=== PATIENT | male | born 1950 | race Caucasian/White ===

== ENCOUNTER 2016-11-05 00:08 | Emergency (ER) | payer OTHER ==
[~2016-11-05] VITALS: Ht 185.4 cm; Wt 98.0 kg
[~2016-11-05 00:08] MED LIST: ARTISOL12; ASPI1TAB83 PO; BRIM0.2S18 OPR; LOSA100T2 PO; NVLGI/PEN SQ; PRED1SUS3 OPB
[2016-11-05 00:12] VITALS: TEMP 36.8; Ht 185.4 cm; Wt 98.0 kg
[2016-11-05] MEDS ORDERED: OXYMETAZOLINE HCL 0.05% NA SPR 15 ML BTL ONE (00:12)
--- NOTE | 2016-11-05 00:29 | EMERGENCY ROOM VISIT NOTE ---
History Report prepared by Mariz[place]liberty: Colby Sheldon Under the Supervision of: Dr. Sarai Woods D.O. First contact with patient: 00:15 Chief Complaint: NOSE BLEED (MINOR) Stated Complaint: NOSE BLEED History of Present Illness The patient is a 66 year old male who presents to the Emergency Room with complaints of persistent nose bleed that started prior to arrival. The patient woke up from sleep and blew his nose. He noticed that it didn't feel right and went to check in the mirror when he noticed a significant amount of blood coming from his left nostril. The patient has not had a nose bleed like this in the past and does not have a history of nose bleeds. He is on 81 mg of Aspirin a day. The patient notes that the blood is starting to go down his throat. Source of History: patient Onset: prior to arrival Position: nose Timing: other (persistent) Note: Other associated symptoms: blood running down throat Denies: history of nose bleeds Review of Systems See HPI for pertinent positives & negatives. A total of 10 systems reviewed and were otherwise negative. Past Medical & Surgical Medical Problems: (1) AAA (abdominal aortic aneurysm) (2) CAD (coronary artery disease) (3) DM2 (diabetes mellitus, type 2) (4) Hemoptysis (5) HLD (hyperlipidemia) (6) HTN (hypertension) Surgical Problems: (1) H/O eye surgery (2) History of percutaneous left heart catheterization (LHC) Family History Diabetes mellitus FH: CAD (coronary artery disease) FH: alcohol abuse FH: cancer Stroke Social History Smoking Status: Current Every Day Smoker Marital Status: Housing Status: lives with family Occupation Status: retired Current/Historical Medications Scheduled Aspirin (Aspirin), 1 TAB PO DAILY Insulin Aspart (Novolog Flexpen), UNITS SQ TIDM Losartan Potassium & Hydrochlo (Hyzaar), 50 MG PO DAILY Allergies Coded Allergies: No Known Allergies (Unverified , 11/05/16) Physical Exam Vital Signs Date Time Temp Pulse Resp B/P Pulse Ox O2 Delivery O2 Flow Rate FiO2 11/05/16 01:34 95 20 144/84 96 11/05/16 01:00 92 20 164/79 95 Room Air 11/05/16 00:45 86 20 153/84 96 Room Air 11/05/16 00:30 81 20 189/104 94 Room Air 11/05/16 00:20 90 22 176/92 95 Room Air 11/05/16 00:12 36.8 91 22 192/95 96 Room Air Physical Exam HEENT: Head - normocephalic and atraumatic Pupils are equal, round, and reactive to light. Extraocular eye muscles are intact, and sclera are anicteric. Nose - Bleeding is from left nares over kisselbach plexus. Mouth - moist buccal mucosa. Oropharynx is nonerythematous and there is no tonsillar exudate or edema noted. Neck: Supple; no JVD, nuchal rigidity, cervical lymphadenopathy. Heart: Regular rate and rhythm. There is a normal S1 and S2 with no murmurs, clicks, or gallops appreciated. Lungs: Clear to auscultation bilaterally with no wheezes, rales, or rhonchi. Abdomen: Soft, completely nontender, nondistended, with good bowel sounds. There are no palpable pulsatile masses or hepatosplenomegaly. There is no guarding, rigidity, or rebound noted. Extremities: No evidence of cyanosis, clubbing, or edema. There are easily palpable peripheral pulses. Skin: warm and dry with good turgor and no rashes. Medical Decision & Procedures Medications Administered Medications (Trade) Dose Ordered Sig/Lux Route Start Time Stop Time Status Last Admin Dose Admin Oxymetazoline HCl (Afrin 0.05% Nasal [place]) 75 sprays STK-MED ONCE .ROUTE 11/05/16 00:12 11/05/16 00:13 DC 11/05/16 00:19 75 SPRAYS Procedure Afrin-intranasal ED Course 0012: Ordered Oxymetazoline HCl 75 sprays intranasal 0021: Past medical records reviewed. The patient was evaluated in room C3. A complete history and physical exam was performed. 0032: At this time on exam, the patient has moderate blood from both nares. He was able to blow out large blood clots and expectorate blood as well. We used the Afrin nasal spray again and had him hold pressure for 20 minutes. This caused the bleeding to stop. 0100: At this time, I reevaluated the patient and the bleeding has completely stopped. 0125: Upon reevaluation, the patient's bleeding is still completely stopped. I discussed findings and results with him. He verbalized agreement of the treatment plan. The patient was discharged home. Medical Decision The patient is a 66 year old male who presents to the ED with a nose bleed. Differential diagnosis includes epistaxis or hypertension. I attest that I have personally reviewed the patient's current medication list. Patient was found to have an elevated blood pressure and was referred to their primary doctor for recheck and further treatment. The patient's blood pressure came down nicely on its own. The nose did not start to bleed again while here in the ER. He was given the bottle of Afrin nasal spray to take home if the bleeding were to start again. He was instructed to apply 2 sprays of Afrin to the left nares and hold pressure for 20 minutes. If the bleeding persists, he should return here to the ER. Impression Primary Impression: Epistaxis Scribe Attestation The scribe's documentation has been prepared under my direction and personally reviewed by me in its entirety. I confirm that the note above accurately reflects all work, treatment, procedures, and medical decision making performed by me. Departure Information Dispostion Home / Self-Care Referrals Chano Gabriel M.D. (PCP) Forms HOME CARE DOCUMENTATION FORM, IMPORTANT VISIT INFORMATION, WORK / SCHOOL INSTRUCTIONS Patient Instructions ED Nosebleed, My [facility] Additional Instructions Rest with head elevated. Avoid alcohol. No aspirin over next 2-3 days If bleeding starts again, hold pressure for 20 min. If bleeding continues, return to the ER. Do not blow your nose for next 48 hours. Use a humidifier in the bedroom. you may ise ocean nasal spray to keep the nose moist.
[2016-11-05 01:34] VITALS: BP 144/84; PULSE 95; O2SAT 96
== END 2016-11-05 02:07 | disposition home or self-care (01) ==
LOC: EDBD 00:08 → C.EDC 00:11
DX: R04.0 Epistaxis (principal); I71.4 Abdominal aortic aneurysm, without rupture; I25.10 Atherosclerotic heart disease of native coronary artery without angina pectoris; E11.9 Type 2 diabetes mellitus without complications; E78.5 Hyperlipidemia, unspecified; I10 Essential (primary) hypertension; Z79.4 Long term (current) use of insulin; Z79.82 Long term (current) use of aspirin; Z79.899 Other long term (current) drug therapy; Z87.898 Personal history of other specified conditions; Z81.1 Family history of alcohol abuse and dependence; Z82.3 Family history of stroke; Z82.49 Family history of ischemic heart disease and other diseases of the circulatory system; Z83.3 Family history of diabetes mellitus